=== PATIENT | female | born 1965 | race Caucasian/White ===

== ENCOUNTER → 2023-08-07 | Outpatient (CLI) | payer BC ==
[~2023-08-07] MED LIST: ALA 100MG PO; CBD OIL PO; GARLIC100 MG PO; MASON NATURAL600 MG PO; MEGARED OMEGA-1 EAC3 PO; METAMUCIL PACK3.4 GM PO; MILK THISTLE150 MG PO; NATURE'S BLEN1200 MG PO; NORCO 325 MG-51 TAB PO; THE MEDICINE S200 M2 PO; [UNRECOGNIZED DRUG - OTHER] PO
== END ==
LOC: MC.RAD 16:29
DX: Z12.31 Encounter for screening mammogram for malignant neoplasm of breast (principal)

== ENCOUNTER 2024-01-06 11:23 | Day surgery (SDC) | payer BC ==
[~2024-01-06] VITALS: Ht 165.1 cm; Wt 64.1 kg
[2024-01-06 08:27] VITALS: BP 155/92; PULSE 76; TEMP 97.8
[2024-01-06 09:25] VITALS: BP 131/85; PULSE 62; TEMP 97.3
[2024-01-06 09:30] VITALS: BP 93/71; PULSE 61
[2024-01-06 09:45] VITALS: BP 127/78; PULSE 62
[~2024-01-06 11:23] MED LIST changes: +ARIMIDEX1 MG PO; +HCTZ12.5TAB PO; +LOVAZA1 GM PO; +LR 1,000 ML IV ONE; +Labetalol 100 MG/20 ML Multi-Dose VIAL ONE; +Lidocaine PF 2% (20 MG/ML) 5 ML VIAL ONE; +METAMUCIL3.4 GM/DOS PO; +fentaNYL 50 MCG/ML 2 ML VIAL ONE
== END 2024-01-06 11:24 | disposition home or self-care (01) ==
LOC: SDCO 11:23
DX: Z12.11 Encounter for screening for malignant neoplasm of colon (principal); D12.4 Benign neoplasm of descending colon; I10 Essential (primary) hypertension; Z79.899 Other long term (current) drug therapy; Z85.3 Personal history of malignant neoplasm of breast; Z87.891 Personal history of nicotine dependence
CPT/HCPCS: J1920; J2704; J3010